=== PATIENT | male | born 1985 | race Two or more races ===

== ENCOUNTER 2017-01-19 12:43 | Emergency (ER) | payer BC ==
[2017-01-19 12:52] VITALS: BP 155/98
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
[2017-01-19] MEDS ORDERED: Sodium Chloride 0.9% 1,000 ML IV ONE (13:16)
[2017-01-19] MEDS ORDERED: Ondansetron 4 MG/2 ML SDV IVPUSH ONE (13:16)
[2017-01-19] MEDS ORDERED: Ketorolac 30 MG/ML SDV IVPUSH ONE (14:22)
== END 2017-01-19 15:47 | disposition home or self-care (01) ==
LOC: SUPCPDRO 12:43 → JD.ED 12:43
DX: M54.6 Pain in thoracic spine (principal); R51 Headache; K21.9 Gastro-esophageal reflux disease without esophagitis; Z79.899 Other long term (current) drug therapy; Z98.890 Other specified postprocedural states
CPT/HCPCS: 36415; 80053; 81001; 83690; 84484; 85025; 85379; 86140; 93005; 96361; 96374; 96375; 99284; J1885; J2405; J7040